=== PATIENT | female | born 1950 | race Caucasian/White ===

== ENCOUNTER → 2016-08-07 20:23 | Outpatient (CLI) | payer MEDICARE | END | disposition home or self-care (01) | LOC: D.LABREF 20:23 | DX: I10 Essential (primary) hypertension (principal) ==

== ENCOUNTER → 2017-08-19 17:00 | Outpatient (CLI) | payer MEDICARE | END | disposition home or self-care (01) | LOC: D.MAMMO 11:30 | DX: Z12.31 Encounter for screening mammogram for malignant neoplasm of breast (principal) ==

== ENCOUNTER → 2017-10-15 16:26 | Outpatient (CLI) | payer MEDICARE | END | disposition home or self-care (01) | LOC: D.MAMMO 09:30 | DX: R92.8 Other abnormal and inconclusive findings on diagnostic imaging of breast (principal) ==

== ENCOUNTER 2018-09-16 14:28 | Inpatient (IN) | payer MEDICARE ==
[2018-09-16] MEDS ORDERED: HUMALOG 30100 UNITS/ SC (14:32)
[2018-09-16] MEDS ORDERED: LANTUS INSULIN10 ML SC (14:32)
[2018-09-16] MEDS ORDERED: PRAVASTATIN SOD10 MG PO (14:32)
[2018-09-16] MEDS ORDERED: COZAAR25 MG PO (14:32)
[2018-09-16] MEDS ORDERED: NEURONTIN600 MG PO (14:33)
[2018-09-16] MEDS ORDERED: VITAMIN B-12500 MC1 PO (14:33)
[2018-09-16 15:47] VITALS: BP 167/86
[2018-09-16 16:20] LABS: APPEARANCE CLEAR (CLEAR); BILIRUBIN NEGATIVE (NEGATIVE); COLOR YELLOW (YELLOW); GLUCOSE NEGATIVE (NEGATIVE); KETONE NEGATIVE (NEGATIVE); NITRITE NEGATIVE (NEGATIVE); PROTEIN NEGATIVE (NEGATIVE); UROBILINOGEN NORMAL (NORMAL)
[2018-09-16 16:52] LABS: BASOPHILS 0.4 % (0-2); EOSINOPHILS 4.1 % (0-7); HEMATOCRIT 41.1 % (36.0-48.0); HEMOGLOBIN 13.8 g/dL (12-16); IMMATURE GRANULOCYTES 0.6 % (0-5); LYMPHOCYTES 18.3 % (15-50); MCH 30.5 pg (26.0-34.0); MCHC 33.6 g/dL (31.0-37.0); MCV 90.7 fL (80.0-100.0); MEAN PLATELET VOLUME 10.2 fL (7.4-10.4); MONOCYTES 5.5 % (2-11); NEUTROPHILS 71.1 % (40-80); PLATELET COUNT 210 10x3/uL (130-400); RBC 4.53 10x6/uL (4.00-5.40); RDW 12.9 % (11.5-14.5); WBC 11.2 10x3/uL (4.8-10.8)
[2018-09-16 16:58] LABS: INR 1.03 (0.85-1.17)
[2018-09-16 17:07] LABS: ALBUMIN 3.8 g/dL (3.4-5.0); BILIRUBIN - TOTAL 0.44 mg/dL (0.2-1.3); CALCIUM 8.9 mg/dL (8.5-10.1); CARBON DIOXIDE 30.1 mmol/L (21.0-32.0); POTASSIUM - SERUM 4.1 mmol/L (3.5-5.1); PROTEIN - SERUM 7.9 g/dL (6.4-8.2)
[2018-09-16 18:02] VITALS: BP 157/76
--- NOTE | 2018-09-16 18:47 | MORECARE ---
CASE MANAGEMENT DISCHARGE SUMMARY PATIENT: NADINE BLOUNT UNIT: [id number] ADM DATE: 09/16/18 AGE: 68 : 48 SEX: F ROOM/BED: D.E17 AUTHOR: NIMESH,DOC PHYSICIAN: REFERRING PHYSICIAN: MAU BOJORQUEZ MD DATE OF SERVICE: 09/16/18 Discharge Plan Patient Name: NADINE BLOUNT Facility: [facility]:[place] : 1950 Planned Disposition: Anticipated Discharge Date: 09/18/18 Discharge Date: Expected LOS: 2 Initial Reviewer: [id number] Initial Review Date: 09/16/2018 Generated: 09/16/18 7:46 pm DCP- Discharge Planning Updated by [id number]: Robyn Narayan on 09/16/18 5:[address] Patient Name: NADINE BLOUNT Admission Status: ER Accout number: [id number] Admission Date: 09-16-2018 : 1950 Admission Diagnosis: Attending: MAU BOJORQUEZ Current LOS: 1 Anticipated DC Date: 09-18-2018 Planned Disposition: Primary Insurance: [facility] MEDICARE SOLUTIONS Discharge Planning Comments: CM met with patient and her daughter to complete initial dc planning assessment. CM educated patient on the CM role and verbal consent given by patient to complete assessment. Patient lives at home alone. She has two grandsons that stay there but are no assistance to her according to the daughter. At discharge patient's daughter does not feel she will be able to go home alone. CM discussed options of Acute rehab, skilled rehab, home health and OP PT. Her daughter said it will just depend on how well she does post surgery. CM will continue to follow and will assist as needed with dc plans/needs. Orthopedic Brace Maker: Robyn Narayan RN, [facility] DCPIA - Discharge Planning Initial Assessment Updated by [id number]: Robyn Narayan on 09/16/18 6:43 pm * Is the patient Alert and Oriented? Yes * How many steps to enter\exit or inside your home? 2 small * PCP Dr. Santos * Pharmacy [facility] [address] * Preadmission Environment Home Alone * ADLs Independent * Equipment Cane Glucometer Wheelchair * Other Equipment Wheelchair is from a family member she may can use. * List name and contact numbers for known caregivers / representatives who currently or will assist patient after discharge: Hailee Arita - daughter - [phone] Latrice Hull - sister - [phone] * Verbal permission to speak to the caregivers and representatives has been obtained from the patient. Yes * Community resources currently utilized None * Additional services required to return to the preadmission environment? Yes * Can the patient safely return to the preadmission environment? No * Has this patient been hospitalized within the prior 30 days at any hospital? No Patient Name: NADINE BLOUNT Page 70720 at 1847 All edits/amendments must be made on the electronic document DICTATION DATE: 09/16/181845 MORTICIAN SUPPLIES SALES REPRESENTATIVE: ROGELIO 09/16/181845 RPT#: [id number] DC DATE: STATUS: ADM IN [facility] [address] [place] [address] END OF REPORT
[2018-09-16 21:18] VITALS: BP 119/68
[2018-09-16 23:36] VITALS: BMI 25.1
[2018-09-17 02:04] VITALS: BP 164/67
[2018-09-17 05:27] LABS: BASOPHILS 0.4 % (0-2); EOSINOPHILS 2.9 % (0-7); HEMATOCRIT 38.8 % (36.0-48.0); HEMOGLOBIN 12.8 g/dL (12-16); IMMATURE GRANULOCYTES 0.2 % (0-5); LYMPHOCYTES 26.5 % (15-50); MCV 90.9 fL (80.0-100.0); MEAN PLATELET VOLUME 10.5 fL (7.4-10.4); PLATELET COUNT 215 10x3/uL (130-400); RBC 4.27 10x6/uL (4.00-5.40); RDW 12.9 % (11.5-14.5); WBC 10.2 10x3/uL (4.8-10.8)
[2018-09-17 05:48] LABS: ANION GAP 11.4 mmol/L (8-16); CALCIUM 8.5 mg/dL (8.5-10.1); CARBON DIOXIDE 29.7 mmol/L (21.0-32.0); POTASSIUM - SERUM 4.1 mmol/L (3.5-5.1)
[2018-09-17 05:59] VITALS: BP 136/44
[2018-09-17 08:44] LABS: INR 1.11 (0.85-1.17); PROTIME 13.8 SECONDS (11.6-15.0)
[2018-09-17 09:41] VITALS: BP 166/77
[2018-09-17 22:22] VITALS: BP 151/77
[2018-09-18 05:16] VITALS: BP 174/70
[2018-09-18 05:46] LABS: BASOPHILS 0.1 % (0-2); EOSINOPHILS 0 % (0-7); HEMATOCRIT 33.4 % (36.0-48.0); HEMOGLOBIN 11.3 g/dL (12-16); IMMATURE GRANULOCYTES 0.3 % (0-5); MCH 30.1 pg (26.0-34.0); MCHC 33.8 g/dL (31.0-37.0); MONOCYTES 7.4 % (2-11); NEUTROPHILS 79.2 % (40-80); PLATELET COUNT 174 10x3/uL (130-400); RBC 3.76 10x6/uL (4.00-5.40); RDW 12.7 % (11.5-14.5); WBC 10.4 10x3/uL (4.8-10.8)
[2018-09-18 05:51] LABS: MCV 88.8 fL (80.0-100.0)
[2018-09-18 05:56] LABS: ANION GAP 12.5 mmol/L (8-16); CALCIUM 7.8 mg/dL (8.5-10.1); CARBON DIOXIDE 25.1 mmol/L (21.0-32.0); CREATININE - SERUM 0.9 mg/dL (0.6-1.3); POTASSIUM - SERUM 4.6 mmol/L (3.5-5.1)
[2018-09-18 09:05] VITALS: BP 155/60
[2018-09-18 12:47] VITALS: BP 142/64
[2018-09-18 17:24] VITALS: BP 144/54
[2018-09-18 20:34] VITALS: BP 137/60
[2018-09-19 00:05] VITALS: BP 136/59
[2018-09-19 05:15] VITALS: BP 124/54
[2018-09-19 05:56] LABS: BASOPHILS 0.3 % (0-2); EOSINOPHILS 3.8 % (0-7); HEMATOCRIT 30.6 % (36.0-48.0); HEMOGLOBIN 10.2 g/dL (12-16); IMMATURE GRANULOCYTES 0.2 % (0-5); MCH 30.3 pg (26.0-34.0); MCHC 33.3 g/dL (31.0-37.0); MEAN PLATELET VOLUME 10.4 fL (7.4-10.4); MONOCYTES 8.8 % (2-11); NEUTROPHILS 59.9 % (40-80); PLATELET COUNT 160 10x3/uL (130-400); RBC 3.37 10x6/uL (4.00-5.40); RDW 13.2 % (11.5-14.5); WBC 11.7 10x3/uL (4.8-10.8)
[2018-09-19 06:00] LABS: MCV 90.8 fL (80.0-100.0)
[2018-09-19 06:39] LABS: CALC OSMOLALITY 284 mosm/kg (275-300); CALCIUM 7.7 mg/dL (8.5-10.1); CARBON DIOXIDE 25.6 mmol/L (21.0-32.0); CHLORIDE - SERUM 108 mmol/L (98-107); CREATININE - SERUM 0.8 mg/dL (0.6-1.3); SODIUM 142 mmol/L (136-145); UREA NITROGEN 19 mg/dL (7-18); eGFR NON AFRICAN AMERICAN 75 mL/min (90-120)
[2018-09-19 06:44] LABS: GLUCOSE 99 mg/dL (74-106)
[2018-09-19 08:31] VITALS: BP 129/65
--- NOTE | 2018-09-19 08:56 | MORECARE ---
CASE MANAGEMENT DISCHARGE SUMMARY PATIENT: NADINE BLOUNT UNIT: [id number] ADM DATE: 09/16/18 AGE: 68 : 48 SEX: F ROOM/BED: D.2229 AUTHOR: NIMESH,DOC PHYSICIAN: REFERRING PHYSICIAN: MAU BOJORQUEZ MD DATE OF SERVICE: 09/19/18 Discharge Plan Patient Name: NADINE BLOUNT Facility: [facility]:[place] : 1950 Planned Disposition: Anticipated Discharge Date: 09/18/18 Discharge Date: Expected LOS: 2 Initial Reviewer: [email or web address] Initial Review Date: 09/16/2018 Generated: 09/19/18 9:56 am DCP- Discharge Planning Updated by [email or web address]: Robyn Narayan on 09/16/18 5:[address] Patient Name: NADINE BLOUNT Admission Status: ER Accout number: [id number] Admission Date: 09-16-2018 : 1950 Admission Diagnosis: Attending: MAU BOJORQUEZ Current LOS: 1 Anticipated DC Date: 09-18-2018 Planned Disposition: Primary Insurance: [facility] MEDICARE SOLUTIONS Discharge Planning Comments: CM met with patient and her daughter to complete initial dc planning assessment. CM educated patient on the CM role and verbal consent given by patient to complete assessment. Patient lives at home alone. She has two grandsons that stay there but are no assistance to her according to the daughter. At discharge patient's daughter does not feel she will be able to go home alone. CM discussed options of Acute rehab, skilled rehab, home health and OP PT. Her daughter said it will just depend on how well she does post surgery. CM will continue to follow and will assist as needed with dc plans/needs. Weapons Engineer: Robyn Narayan RN, [facility] DCPIA - Discharge Planning Initial Assessment Updated by [email or web address]: Robyn Narayan on 09/16/18 6:43 pm * Is the patient Alert and Oriented? Yes * How many steps to enter\exit or inside your home? 2 small * PCP Dr. Santos * Pharmacy [facility] [address] * Preadmission Environment Home Alone * ADLs Independent * Equipment Cane Glucometer Wheelchair * Other Equipment Wheelchair is from a family member she may can use. * List name and contact numbers for known caregivers / representatives who currently or will assist patient after discharge: Hailee Arita - daughter - [phone] Latrice Hull - sister - [phone] * Verbal permission to speak to the caregivers and representatives has been obtained from the patient. Yes * Community resources currently utilized None * Additional services required to return to the preadmission environment? Yes * Can the patient safely return to the preadmission environment? No * Has this patient been hospitalized within the prior 30 days at any hospital? No External Providers External Provider: [facility] Next Contact Date: Service Request Date: Service Type: Resolution: Reviewer: Comments: Last DP export: 09/16/18 5:47 pm Patient Name: NADINE BLOUNT Page [id number] at 0856 All edits/amendments must be made on the electronic document DICTATION DATE: 09/19/18855 CARBURETOR EXPERT: ROGELIO 09/19/1856 RPT#: [id number] DC DATE: STATUS: ADM IN [facility] [address] [place] [address] END OF REPORT
--- NOTE | 2018-09-19 09:04 | MORECARE ---
CASE MANAGEMENT DISCHARGE SUMMARY PATIENT: NADINE BLOUNT UNIT: [id number] ADM DATE: 09/16/18 AGE: 68 : 48 SEX: F ROOM/BED: D.2229 AUTHOR: NIMESH,DOC PHYSICIAN: REFERRING PHYSICIAN: MAU BOJORQUEZ MD DATE OF SERVICE: 09/19/18 Discharge Plan Patient Name: NADINE BLOUNT Facility: [facility]:[place] : 1950 Planned Disposition: Anticipated Discharge Date: 09/18/18 Discharge Date: Expected LOS: 2 Initial Reviewer: [id number] Initial Review Date: 09/16/2018 Generated: 09/19/18 10:04 am Comments DCP- Discharge Planning Updated by [email or web address]: Ivory Shah on 09/19/18 7:[address] Met with patient to discuss discharge planning. She states she does not think she can tolerate 3 hours of therapy a day at this time. ELIZABETH for [facility] signed. States she lives by [facility] with her grand son and would like to be close to home. I called [facility] and spoke to quintin Bosch faxed. CM will continue to follow and assist with discharge planning/needs. DCP- Discharge Planning Updated by [email or web address]: Robyn Narayan on 09/16/18 5:[address] Patient Name: NADINE BLOUNT Admission Status: ER Accout number: [id number] Admission Date: 09-16-2018 : 1950 Admission Diagnosis: Attending: MAU BOJORQUEZ Current LOS: 1 Anticipated DC Date: 09-18-2018 Planned Disposition: Primary Insurance: [facility] MEDICARE SOLUTIONS Discharge Planning Comments: CM met with patient and her daughter to complete initial dc planning assessment. CM educated patient on the CM role and verbal consent given by patient to complete assessment. Patient lives at home alone. She has two grandsons that stay there but are no assistance to her according to the daughter. At discharge patient's daughter does not feel she will be able to go home alone. CM discussed options of Acute rehab, skilled rehab, home health and OP PT. Her daughter said it will just depend on how well she does post surgery. CM will continue to follow and will assist as needed with dc plans/needs. Dorr Operator: Robyn Narayan RN, [facility] DCPIA - Discharge Planning Initial Assessment Updated by [email or web address]: Robyn Narayan on 09/16/18 6:43 pm * Is the patient Alert and Oriented? Yes * How many steps to enter\exit or inside your home? 2 small * PCP Dr. Santos * Pharmacy [facility] * Preadmission Environment Home Alone * ADLs Independent * Equipment Cane Glucometer Wheelchair * Other Equipment Wheelchair is from a family member she may can use. * List name and contact numbers for known caregivers / representatives who currently or will assist patient after discharge: Hailee Arita - daughter - [phone] Latrice Hull - sister - [phone] * Verbal permission to speak to the caregivers and representatives has been obtained from the patient. Yes * Community resources currently utilized None * Additional services required to return to the preadmission environment? Yes * Can the patient safely return to the preadmission environment? No * Has this patient been hospitalized within the prior 30 days at any hospital? No Coverage Notice Reviewer: [id number] Stephen Shah Notice Issued Date-Time: 09/19/2018 8:59 Notice Type: Patient Choice Letter Notice Delivered To: Patient Relationship to Patient: Resourcing Consultant Name: Delivery Method: HAND - Hand Delivered Barbara Days: Prior Verbal Notification: Recipient Understood Notice: Yes Recipient Signature: Yes Med Rec Note Co-signed by Attending: Coverage Notice Comment: ELIZABETH 1. [facility] 2. [facility] Last DP export: 09/19/18 7:56 a Patient Name: NADINE BLOUNT Page 96271 at 0904 All edits/amendments must be made on the electronic document DICTATION DATE: 09/19/18902 FINANCIAL AID OFFICER: ROGELIO 09/19/18902 RPT#: [id number] DC DATE: STATUS: ADM IN [facility] [address] [place] [address] END OF REPORT
--- NOTE | 2018-09-19 11:36 | MORECARE ---
CASE MANAGEMENT DISCHARGE SUMMARY PATIENT: NADINE BLOUNT UNIT: [id number] ADM DATE: 09/16/18 AGE: 68 : 48 SEX: F ROOM/BED: D.2229 AUTHOR: NIMESH,DOC PHYSICIAN: REFERRING PHYSICIAN: MAU BOJORQUEZ MD DATE OF SERVICE: 09/19/18 Discharge Plan Patient Name: NADINE BLOUNT Facility: [facility]:[place] : 1950 Planned Disposition: Anticipated Discharge Date: 09/18/18 Discharge Date: Expected LOS: 2 Initial Reviewer: [email or web address] Initial Review Date: 09/16/2018 Generated: 09/19/18 12:36 pm Comments DCP- Discharge Planning Updated by [id number]: Ivory Shah on 09/19/18 7:[address] Met with patient to discuss discharge planning. She states she does not think she can tolerate 3 hours of therapy a day at this time. ELIZABETH for [facility] and [facility] signed. States she lives by [facility] with her grand son and would like to be close to home. I called [facility] and spoke to quintin Bosch faxed. CM will continue to follow and assist with discharge planning/needs. DCP- Discharge Planning Updated by [id number]: Robyn Narayan on 09/16/18 5:[address] Patient Name: NADINE BLOUNT Admission Status: ER Accout number: [id number] Admission Date: 09-16-2018 : 1950 Admission Diagnosis: Attending: MAU BOJORQUEZ Current LOS: 1 Anticipated DC Date: 09-18-2018 Planned Disposition: Primary Insurance: [facility] MEDICARE SOLUTIONS Discharge Planning Comments: CM met with patient and her daughter to complete initial dc planning assessment. CM educated patient on the CM role and verbal consent given by patient to complete assessment. Patient lives at home alone. She has two grandsons that stay there but are no assistance to her according to the daughter. At discharge patient's daughter does not feel she will be able to go home alone. CM discussed options of Acute rehab, skilled rehab, home health and OP PT. Her daughter said it will just depend on how well she does post surgery. CM will continue to follow and will assist as needed with dc plans/needs. Buckle Coverer: Robyn Narayan RN, [facility] DCPIA - Discharge Planning Initial Assessment Updated by [id number]: Robyn Narayan on 09/16/18 6:43 pm * Is the patient Alert and Oriented? Yes * How many steps to enter\exit or inside your home? 2 small * PCP Dr. Santos * Pharmacy [facility] on [facility] * Preadmission Environment Home Alone * ADLs Independent * Equipment Cane Glucometer Wheelchair * Other Equipment Wheelchair is from a family member she may can use. * List name and contact numbers for known caregivers / representatives who currently or will assist patient after discharge: Hailee Arita - daughter - [phone] Latrice Hull - sister - [phone] * Verbal permission to speak to the caregivers and representatives has been obtained from the patient. Yes * Community resources currently utilized None * Additional services required to return to the preadmission environment? Yes * Can the patient safely return to the preadmission environment? No * Has this patient been hospitalized within the prior 30 days at any hospital? No External Providers External Provider: [facility] Next Contact Date: Service Request Date: Service Type: Resolution: Reviewer: Comments: Coverage Notice Reviewer: [id number] - Ivory Shah Notice Issued Date-Time: 09/19/2018 8:59 Notice Type: Patient Choice Letter Notice Delivered To: Patient Relationship to Patient: Oncology Rn Name: Delivery Method: HAND - Hand Delivered Barbara Days: Prior Verbal Notification: Recipient Understood Notice: Yes Recipient Signature: Yes Med Rec Note Co-signed by Attending: Coverage Notice Comment: ELIZABETH 1. [facility] 2. [facility] DP export: 09/19/18 8:04 a Patient Name: NADINE BLOUNT Page 92320 at 1136 All edits/amendments must be made on the electronic document DICTATION DATE: 09/19/181135 TRAVEL COUNSELOR AUTOMOBILE CLUB: ROGELIO 09/19/18 113 RPT#: [id number] DC DATE: STATUS: ADM IN [facility] [address] [place] [address] END OF REPORT
--- NOTE | 2018-09-19 12:11 | MORECARE ---
CASE MANAGEMENT DISCHARGE SUMMARY PATIENT: NADINE BLOUNT UNIT: [id number] ADM DATE: 09/16/18 AGE: 68 : 48 SEX: F ROOM/BED: D.2229 AUTHOR: NIMESH,DOC PHYSICIAN: REFERRING PHYSICIAN: MAU BOJORQUEZ MD DATE OF SERVICE: 09/19/18 Discharge Plan Patient Name: NADINE BLOUNT Facility: [facility]:[place] : 1950 Planned Disposition: Anticipated Discharge Date: 09/18/18 Discharge Date: Expected LOS: 2 Initial Reviewer: [id number] Initial Review Date: 09/16/2018 Generated: 09/19/18 1:11 pm Comments DCP- Discharge Planning Updated by [email or web address]: Ivory Shah on 09/19/18 11:[address] [facility] does not accept patient's insurance, referral sent to [facility] for [facility]. CM will continue to follow and assist with discharge planning/needs. DCP- Discharge Planning Updated by [id number]: Ivory Shah on 09/19/18 7:[address] Met with patient to discuss discharge planning. She states she does not think she can tolerate 3 hours of therapy a day at this time. ELIZABETH for [facility] and [facility] signed. States she lives by [facility] with her grand son and would like to be close to home. I called [facility] and spoke to Danitza, clinical faxed. CM will continue to follow and assist with discharge planning/needs. DCP- Discharge Planning Updated by [id number]: Robyn Narayan on 09/16/18 5:[address] Patient Name: NADINE BLOUNT Admission Status: ER Accout number: [id number] Admission Date: 09-16-2018 : 1950 Admission Diagnosis: Attending: MAU BOJORQUEZ Current LOS: 1 Anticipated DC Date: 09-18-2018 Planned Disposition: Primary Insurance: [facility] MEDICARE SOLUTIONS Discharge Planning Comments: CM met with patient and her daughter to complete initial dc planning assessment. CM educated patient on the CM role and verbal consent given by patient to complete assessment. Patient lives at home alone. She has two grandsons that stay there but are no assistance to her according to the daughter. At discharge patient's daughter does not feel she will be able to go home alone. CM discussed options of Acute rehab, skilled rehab, home health and OP PT. Her daughter said it will just depend on how well she does post surgery. CM will continue to follow and will assist as needed with dc plans/needs. Rn Chronic: Robyn Narayan RN, [facility] DCPIA - Discharge Planning Initial Assessment Updated by [email or web address]: Robyn Narayan on 09/16/18 6:43 pm * Is the patient Alert and Oriented? Yes * How many steps to enter\exit or inside your home? 2 small * PCP Dr. Santos * Pharmacy [facility] on [facility] * Preadmission Environment Home Alone * ADLs Independent * Equipment Cane Glucometer Wheelchair * Other Equipment Wheelchair is from a family member she may can use. * List name and contact numbers for known caregivers / representatives who currently or will assist patient after discharge: Hailee Arita - daughter - [phone] Latrice Hull - sister - [phone] * Verbal permission to speak to the caregivers and representatives has been obtained from the patient. Yes * Community resources currently utilized None * Additional services required to return to the preadmission environment? Yes * Can the patient safely return to the preadmission environment? No * Has this patient been hospitalized within the prior 30 days at any hospital? No Coverage Notice Reviewer: [id number] Stephen Shah Notice Issued Date-Time: 09/19/2018 8:59 Notice Type: Patient Choice Letter Notice Delivered To: Patient Relationship to Patient: Senior Vice President And Chief Information Officer Name: Delivery Method: HAND - Hand Delivered Barbara Days: Prior Verbal Notification: Recipient Understood Notice: Yes Recipient Signature: Yes Med Rec Note Co-signed by Attending: Coverage Notice Comment: ELIZABETH 1. [facility] 2. [facility] Last DP export: 09/19/18 10:36 a Patient Name: NADINE BLOUNT Page 61082 at 1211 All edits/amendments must be made on the electronic document DICTATION DATE: 09/19/18 1211 GANTRY CRANE OPERATOR: ROGELIO 09/19/18 1211 RPT#: [id number] DC DATE: STATUS: ADM IN [facility] [address] [facility] [place] [place] [address] END OF REPORT
[2018-09-19 12:25] LABS: APPEARANCE CLEAR (CLEAR); BACTERIA FEW /hpf (NONE SEEN); BILIRUBIN NEGATIVE (NEGATIVE); COLOR YELLOW (YELLOW); EPITHELIAL CELLS OCC /hpf (0-5); GLUCOSE NEGATIVE (NEGATIVE); KETONE NEGATIVE (NEGATIVE); MUCUS <1+ /lpf (NONE SEEN); NITRITE NEGATIVE (NEGATIVE); PROTEIN NEGATIVE (NEGATIVE); SPECIFIC GRAVITY 1.015 (1.005-1.020); UROBILINOGEN NORMAL (NORMAL); WHITE CELLS - URINE OCC /hpf (0-5)
[2018-09-19 13:02] VITALS: BP 142/62
[2018-09-19 16:44] VITALS: BP 133/63
[2018-09-19 20:01] VITALS: BP 148/60
[2018-09-20 01:25] VITALS: BP 144/63
[2018-09-20 05:38] LABS: BASOPHILS 0.5 % (0-2); EOSINOPHILS 8.4 % (0-7); HEMATOCRIT 30.1 % (36.0-48.0); IMMATURE GRANULOCYTES 0.3 % (0-5); LYMPHOCYTES 28.7 % (15-50); MCH 30.1 pg (26.0-34.0); MCHC 33.2 g/dL (31.0-37.0); MCV 90.7 fL (80.0-100.0); MEAN PLATELET VOLUME 10.1 fL (7.4-10.4); MONOCYTES 8.7 % (2-11); NEUTROPHILS 53.4 % (40-80); PLATELET COUNT 176 10x3/uL (130-400); RBC 3.32 10x6/uL (4.00-5.40); RDW 12.9 % (11.5-14.5)
[2018-09-20 06:03] LABS: CARBON DIOXIDE 26.3 mmol/L (21.0-32.0); CHLORIDE - SERUM 108 mmol/L (98-107); POTASSIUM - SERUM 3.8 mmol/L (3.5-5.1); SODIUM 141 mmol/L (136-145); UREA NITROGEN 19 mg/dL (7-18)
[2018-09-20 06:16] LABS: CALC OSMOLALITY 282 mosm/kg (275-300); CALCIUM 7.6 mg/dL (8.5-10.1); CREATININE - SERUM 0.8 mg/dL (0.6-1.3); GLUCOSE 102 mg/dL (74-106); eGFR NON AFRICAN AMERICAN 75 mL/min (90-120)
[2018-09-20 09:06] VITALS: BP 143/62
[2018-09-20 13:53] VITALS: BP 112/64
[2018-09-20 16:24] VITALS: BP 151/73
[2018-09-20 19:35] VITALS: BP 147/66
[2018-09-21] VITALS: BP 160/65
[2018-09-21 04:00] VITALS: BP 139/65
[2018-09-21 04:46] LABS: BASOPHILS 0.3 % (0-2); EOSINOPHILS 9.4 % (0-7); HEMATOCRIT 31.2 % (36.0-48.0); HEMOGLOBIN 10.6 g/dL (12-16); IMMATURE GRANULOCYTES 0.2 % (0-5); LYMPHOCYTES 26.5 % (15-50); MCH 30.2 pg (26.0-34.0); MCV 88.9 fL (80.0-100.0); MEAN PLATELET VOLUME 9.6 fL (7.4-10.4); MONOCYTES 8.6 % (2-11); PLATELET COUNT 185 10x3/uL (130-400); RBC 3.51 10x6/uL (4.00-5.40); RDW 12.9 % (11.5-14.5); WBC 10.3 10x3/uL (4.8-10.8)
[2018-09-21 05:00] LABS: CALC OSMOLALITY 281 mosm/kg (275-300); CALCIUM 7.7 mg/dL (8.5-10.1); CHLORIDE - SERUM 107 mmol/L (98-107); CREATININE - SERUM 0.6 mg/dL (0.6-1.3); POTASSIUM - SERUM 3.9 mmol/L (3.5-5.1); SODIUM 142 mmol/L (136-145); UREA NITROGEN 15 mg/dL (7-18); eGFR NON AFRICAN AMERICAN > 90 mL/min (90-120)
[2018-09-21 05:03] LABS: GLUCOSE 59 mg/dL (74-106)
[2018-09-21 09:08] VITALS: BP 170/75
[2018-09-21 13:36] VITALS: BP 174/73
[2018-09-21 18:14] VITALS: BP 157/70
[2018-09-21 20:00] VITALS: BP 137/69
[2018-09-22] VITALS: BP 140/71
[2018-09-22 04:00] VITALS: BP 141/70
[2018-09-22 06:34] LABS: BASOPHILS 0.5 % (0-2); EOSINOPHILS 9.7 % (0-7); HEMATOCRIT 31.4 % (36.0-48.0); HEMOGLOBIN 10.7 g/dL (12-16); IMMATURE GRANULOCYTES 0.1 % (0-5); LYMPHOCYTES 29.6 % (15-50); MCH 30.5 pg (26.0-34.0); MCHC 34.1 g/dL (31.0-37.0); MCV 89.5 fL (80.0-100.0); MONOCYTES 9.2 % (2-11); NEUTROPHILS 50.9 % (40-80); RBC 3.51 10x6/uL (4.00-5.40); RDW 12.9 % (11.5-14.5); WBC 8.8 10x3/uL (4.8-10.8)
[2018-09-22 06:35] LABS: CARBON DIOXIDE 28.1 mmol/L (21.0-32.0); CHLORIDE - SERUM 105 mmol/L (98-107); POTASSIUM - SERUM 4.1 mmol/L (3.5-5.1); SODIUM 141 mmol/L (136-145); UREA NITROGEN 17 mg/dL (7-18); eGFR NON AFRICAN AMERICAN 75 mL/min (90-120)
[2018-09-22 06:36] LABS: CALC OSMOLALITY 280 mosm/kg (275-300); CREATININE - SERUM 0.8 mg/dL (0.6-1.3); GLUCOSE 61 mg/dL (74-106)
[2018-09-22 06:47] LABS: PLATELET COUNT 226 10x3/uL (130-400)
--- NOTE | 2018-09-22 08:56 | MORECARE ---
CASE MANAGEMENT DISCHARGE SUMMARY PATIENT: NADINE BLOUNT UNIT: [id number] ADM DATE: 09/16/18 AGE: 68 : 48 SEX: F ROOM/BED: D.2229 AUTHOR: NIMESH,DOC PHYSICIAN: REFERRING PHYSICIAN: MAU BOJORQUEZ MD DATE OF SERVICE: 09/22/18 Discharge Plan Patient Name: NADINE BLOUNT Facility: [facility]:[place] : 1950 Planned Disposition: Anticipated Discharge Date: 09/18/18 Discharge Date: Expected LOS: 2 Initial Reviewer: [id number] Initial Review Date: 09/16/2018 Generated: 09/22/18 9:56 am Comments DCP- Discharge Planning Updated by [email or web address]: Ivory Hajiag on 09/19/18 11:[address] [facility] does not accept patient's insurance, referral sent to [facility] for [facility]. CM will continue to follow and assist with discharge planning/needs. DCP- Discharge Planning Updated by [email or web address]: Ivory Shah on 09/19/18 7:[address] Met with patient to discuss discharge planning. She states she does not think she can tolerate 3 hours of therapy a day at this time. ELIZABETH for [facility] and [facility] signed. States she lives by [facility] with her grand son and would like to be close to home. I called [facility] and spoke to Danitza, clinical faxed. CM will continue to follow and assist with discharge planning/needs. DCP- Discharge Planning Updated by [email or web address]: Robyn Narayan on 09/16/18 5:[address] Patient Name: NADINE BLOUNT Admission Status: ER Accout number: [id number] Admission Date: 09-16-2018 : 1950 Admission Diagnosis: Attending: MAU BOJORQUEZ Current LOS: 1 Anticipated DC Date: 09-18-2018 Planned Disposition: Primary Insurance: [facility] MEDICARE SOLUTIONS Discharge Planning Comments: CM met with patient and her daughter to complete initial dc planning assessment. CM educated patient on the CM role and verbal consent given by patient to complete assessment. Patient lives at home alone. She has two grandsons that stay there but are no assistance to her according to the daughter. At discharge patient's daughter does not feel she will be able to go home alone. CM discussed options of Acute rehab, skilled rehab, home health and OP PT. Her daughter said it will just depend on how well she does post surgery. CM will continue to follow and will assist as needed with dc plans/needs. Firestopper Technician: Robyn Narayan RN, [facility] DCPIA - Discharge Planning Initial Assessment Updated by [email or web address]: Robyn Narayan on 09/16/18 6:43 pm * Is the patient Alert and Oriented? Yes * How many steps to enter\exit or inside your home? 2 small * PCP Dr. Santos * Pharmacy [facility] on [facility]/[place] * Preadmission Environment Home Alone * ADLs Independent * Equipment Cane Glucometer Wheelchair * Other Equipment Wheelchair is from a family member she may can use. * List name and contact numbers for known caregivers / representatives who currently or will assist patient after discharge: Hailee Arita - daughter - [phone] Latrice Hull - sister - [phone] * Verbal permission to speak to the caregivers and representatives has been obtained from the patient. Yes * Community resources currently utilized None * Additional services required to return to the preadmission environment? Yes * Can the patient safely return to the preadmission environment? No * Has this patient been hospitalized within the prior 30 days at any hospital? No External Providers External Provider: [facility] Next Contact Date: Service Request Date: Service Type: Resolution: Reviewer: Comments: Coverage Notice Reviewer: [id number] - Ivory Shah Notice Issued Date-Time: 09/19/2018 8:59 Notice Type: Patient Choice Letter Notice Delivered To: Patient Relationship to Patient: Program Writer Name: Delivery Method: HAND - Hand Delivered Barbara Days: Prior Verbal Notification: Recipient Understood Notice: Yes Recipient Signature: Yes Med Rec Note Co-signed by Attending: Coverage Notice Comment: ELIZABETH 1Karie Cary 2Loyda George DP export: 09/19/18 11:11 a Patient Name: NADINE BLOUNT Page 41817 at 0856 All edits/amendments must be made on the electronic document DICTATION DATE: 09/22/18855 TEA BLENDER: ROGELIO 09/22/1856 RPT#: [id number] DC DATE: STATUS: ADM IN [facility] [address] [place] [address] END OF REPORT
[2018-09-22 09:01] VITALS: BP 155/66
--- NOTE | 2018-09-22 09:03 | MORECARE ---
CASE MANAGEMENT DISCHARGE SUMMARY PATIENT: NADINE BLOUNT UNIT: [id number] ADM DATE: 09/16/18 AGE: 68 : 48 SEX: F ROOM/BED: D.2229 AUTHOR: NIMESH,DOC PHYSICIAN: REFERRING PHYSICIAN: MAU BOJORQUEZ MD DATE OF SERVICE: 09/22/18 Discharge Plan Patient Name: NADINE BLOUNT Facility: [facility]:[place] : 1950 Planned Disposition: Anticipated Discharge Date: 09/18/18 Discharge Date: Expected LOS: 2 Initial Reviewer: [id number] Initial Review Date: 09/16/2018 Generated: 09/22/18 10:03 am Comments DCP- Discharge Planning Updated by [email or web address]: Ivory Shah on 09/22/18 7:[address] Received a note from patient's daughter that they would like her to go to [facility] inpatient rehab or [facility]. Her insurance has already authorized SNF at [facility]. I spoke with the patient and she would like [facility]. She states she does not think she can tolerate 3 hours of therapy a day. She states she would like to be home in a week, but does not think that will be a possibility. I called and spoke to Brigitte Lomeli at [facility] and clinical faxed. I called the daughter and left a message on her voice mail. CM will continue to follow and assist with discharge planning/needs. DCP- Discharge Planning Updated by [id number]: Ivory Shah on 09/19/18 11:[address] [place] does not accept patient's insurance, referral sent to Roz Chapin for [facility]. CM will continue to follow and assist with discharge planning/needs. DCP- Discharge Planning Updated by [id number]: Ivory Alyssa on 09/19/18 7:[address] Met with patient to discuss discharge planning. She states she does not think she can tolerate 3 hours of therapy a day at this time. ELIZABETH for [place] and [facility] signed. [facility] [place] [facility] grand son and would like to be close to home. I called [facility] and spoke to Danitza clinical faxed. CM will continue to follow and assist with discharge planning/needs. DCP- Discharge Planning Updated by [id number]: Robyn Narayan on 09/16/18 5:[address] Patient Name: NADINE BLOUNT Admission Status: ER Accout number: [id number] Admission Date: 09-16-2018 : 1950 Admission Diagnosis: Attending: MAU BOJORQUEZ Current LOS: 1 Anticipated DC Date: 09-18-2018 Planned Disposition: Primary Insurance: [facility] [employer]IC[employer]UT[employer] Discharge Planning Comments: CM met with patient and her daughter to complete initial dc planning assessment. CM educated patient on the CM role and verbal consent given by patient to complete assessment. Patient lives at home alone. She has two grandsons that stay there but are no assistance to her according to the daughter. At discharge patient's daughter does not feel she will be able to go home alone. CM discussed options of Acute rehab, skilled rehab, home health and OP PT. Her daughter said it will just depend on how well she does post surgery. CM will continue to follow and will assist as needed with dc plans/needs. Mobile Equipment Operator: Robyn Narayan RN, [facility] DCPIA - Discharge Planning Initial Assessment Updated by [id number]: Robyn Narayan on 09/16/18 6:43 pm * Is the patient Alert and Oriented? Yes * How many steps to enter\exit or inside your home? 2 small * PCP Dr. Santos * Pharmacy [facility] on [facility]/[place] * Preadmission Environment Home Alone * ADLs Independent * Equipment Cane Glucometer Wheelchair * Other Equipment Wheelchair is from a family member she may can use. * List name and contact numbers for known caregivers / representatives who currently or will assist patient after discharge: Hailee Arita - daughter - [phone] Latrice Hull - sister - [phone] * Verbal permission to speak to the caregivers and representatives has been obtained from the patient. Yes * Community resources currently utilized None * Additional services required to return to the preadmission environment? Yes * Can the patient safely return to the preadmission environment? No * Has this patient been hospitalized within the prior 30 days at any hospital? No Coverage Notice Reviewer: [id number] Stephen Shah Notice Issued Date-Time: 09/19/2018 8:59 Notice Type: Patient Choice Letter Notice Delivered To: Patient Relationship to Patient: French Folder Name: Delivery Method: HAND - Hand Delivered Barbara Days: Prior Verbal Notification: Recipient Understood Notice: Yes Recipient Signature: Yes Med Rec Note Co-signed by Attending: Coverage Notice Comment: ELIZABETH 1. [facility] 2. [facility] Last DP export: 09/22/18 7:56 a Patient Name: NADINE BLOUNT Page [id number] at 0903 All edits/amendments must be made on the electronic document DICTATION DATE: 09/22/18902 ALUMNI SECRETARY: ROGELIO 09/22/18902 RPT#: [id number] DC DATE: STATUS: ADM IN [facility] [address] [place] [address] END OF REPORT
[2018-09-22 12:57] VITALS: BP 145/64
--- NOTE | 2018-09-22 15:53 | MORECARE ---
CASE MANAGEMENT DISCHARGE SUMMARY PATIENT: NADINE BLOUNT UNIT: [id number] ADM DATE: 09/16/18 AGE: 68 : 48 SEX: F ROOM/BED: D.2229 AUTHOR: NIMESH,DOC PHYSICIAN: REFERRING PHYSICIAN: MAU BOJORQUEZ MD DATE OF SERVICE: 09/22/18 Discharge Plan Patient Name: NADINE BLOUNT Facility: [facility]:[place] : 1950 Planned Disposition: Anticipated Discharge Date: 09/18/18 Discharge Date: Expected LOS: 2 Initial Reviewer: [id number] Initial Review Date: 09/16/2018 Generated: 09/22/18 4:53 pm Comments DCP- Discharge Planning Updated by [id number]: Ivory Alyssa on 09/22/18 2:[address] Called and left a message to follow up on her referral to [facility]. CM will continue to follow and assist with discharge planning/needs. DCP- Discharge Planning Updated by [email or web address]: Ivory Alyssa on 09/22/18 7:[address] Received a note from patient's daughter that they would like her to go to [facility] inpatient rehab or [facility]. Her insurance has already authorized SNF at [facility]. I spoke with the patient and she would like [facility]. She states she does not think she can tolerate 3 hours of therapy a day. She states she would like to be home in a week, but does not think that will be a possibility. I called and spoke to Brigitte Lomeli at [facility] and clinical faxed. I called the daughter and left a message on her voice mail. CM will continue to follow and assist with discharge planning/needs. DCP- Discharge Planning Updated by [email or web address]: Ivory Shah on 09/19/18 11:[address] [place] does not accept patient's insurance, referral sent to Roz Chapin for [facility]. CM will continue to follow and assist with discharge planning/needs. DCP- Discharge Planning Updated by [email or web address]: Ivory Shah on 09/19/18 7:[address] Met with patient to discuss discharge planning. She states she does not think she can tolerate 3 hours of therapy a day at this time. ELIZABETH for [facility] and [facility] signed. States she lives by [facility] with her grand son and would like to be close to home. I called [facility] and spoke to Danitza, clinical faxed. CM will continue to follow and assist with discharge planning/needs. DCP- Discharge Planning Updated by [id number]: Robyn Narayan on 09/16/18 5:[address] Patient Name: NADINE BLOUNT Admission Status: ER Accout number: [id number] Admission Date: 09-16-2018 : 1950 Admission Diagnosis: Attending: MAU BOJORQUEZ Current LOS: 1 Anticipated DC Date: 09-18-2018 Planned Disposition: Primary Insurance: [facility] MEDIC[facility] SOLUTIONS Discharge Planning Comments: CM met with patient and her daughter to complete initial dc planning assessment. CM educated patient on the CM role and verbal consent given by patient to complete assessment. Patient lives at home alone. She has two grandsons that stay there but are no assistance to her according to the daughter. At discharge patient's daughter does not feel she will be able to go home alone. CM discussed options of Acute rehab, skilled rehab, home health and OP PT. Her daughter said it will just depend on how well she does post surgery. CM will continue to follow and will assist as needed with dc plans/needs. Cardiograph Operator: Robyn Narayan RN, [facility] DCPIA - Discharge Planning Initial Assessment Updated by [id number]: Robyn Narayan on 09/16/18 6:43 pm * Is the patient Alert and Oriented? Yes * How many steps to enter\exit or inside your home? 2 small * PCP Dr. Santos * Pharmacy [facility]/[place] * Preadmission Environment Home Alone * ADLs Independent * Equipment Cane Glucometer Wheelchair * Other Equipment Wheelchair is from a family member she may can use. * List name and contact numbers for known caregivers / representatives who currently or will assist patient after discharge: Hailee Arita - daughter - [phone] Latrice Mitchell sister - [phone] * Verbal permission to speak to the caregivers and representatives has been obtained from the patient. Yes * Community resources currently utilized None * Additional services required to return to the preadmission environment? Yes * Can the patient safely return to the preadmission environment? No * Has this patient been hospitalized within the prior 30 days at any hospital? No Coverage Notice Reviewer: [id number] Stephen Shah Notice Issued Date-Time: 09/19/2018 8:59 Notice Type: Patient Choice Letter Notice Delivered To: Patient Relationship to Patient: Corporate Vp Advertising & Online Name: Delivery Method: HAND - Hand Delivered Barbara Days: Prior Verbal Notification: Recipient Understood Notice: Yes Recipient Signature: Yes Med Rec Note Co-signed by Attending: Coverage Notice Comment: ELIZABETH 1. [facility] 2. [facility] DP export: 09/22/18 8:03 a Patient Name: NADINE BLOUNT Page [id number] at 1553 All edits/amendments must be made on the electronic document DICTATION DATE: 09/22/181552 EXHIBIT DESIGNER: ROGELIO 09/22/181552 RPT#: [id number] DC DATE: STATUS: ADM IN [facility] [address] [place] [address] END OF REPORT
[2018-09-22 16:38] VITALS: BP 155/69
[2018-09-22 20:00] VITALS: BP 143/74
[2018-09-23 04:00] VITALS: BP 157/74
[2018-09-23 05:43] LABS: BASOPHILS 0.6 % (0-2); EOSINOPHILS 7.4 % (0-7); HEMATOCRIT 33.3 % (36.0-48.0); HEMOGLOBIN 11.4 g/dL (12-16); IMMATURE GRANULOCYTES 0.2 % (0-5); MCH 30.3 pg (26.0-34.0); MCHC 34.2 g/dL (31.0-37.0); MCV 88.6 fL (80.0-100.0); MEAN PLATELET VOLUME 9.8 fL (7.4-10.4); MONOCYTES 7.7 % (2-11); NEUTROPHILS 59.1 % (40-80); PLATELET COUNT 263 10x3/uL (130-400); RBC 3.76 10x6/uL (4.00-5.40); RDW 12.8 % (11.5-14.5); WBC 9.7 10x3/uL (4.8-10.8)
[2018-09-23 05:59] LABS: ALBUMIN 2.6 g/dL (3.4-5.0); ANION GAP 13.1 mmol/L (8-16); BILIRUBIN - TOTAL 1.7 mg/dL (0.2-1.3); CALCIUM 8.5 mg/dL (8.5-10.1); CARBON DIOXIDE 26.1 mmol/L (21.0-32.0); CREATININE - SERUM 0.9 mg/dL (0.6-1.3); POTASSIUM - SERUM 4.2 mmol/L (3.5-5.1); PROTEIN - SERUM 6.6 g/dL (6.4-8.2)
[2018-09-23] MEDS ORDERED: MIRALAX17 GM PO (09:30)
[2018-09-23] MEDS ORDERED: ASPIRIN81 MG PO ×2 (09:30→11:41)
[2018-09-23] MEDS ORDERED: ACETAMINOPHEN325 MG PO (09:30)
[2018-09-23] MEDS ORDERED: COLACE100 MG PO (09:30)
[2018-09-23 09:34] VITALS: BP 119/74
--- NOTE | 2018-09-23 10:58 | MORECARE ---
CASE MANAGEMENT DISCHARGE SUMMARY PATIENT: NADINE BLOUNT UNIT: [id number] ADM DATE: 09/16/18 AGE: 68 : 48 SEX: F ROOM/BED: D.2229 AUTHOR: NIMESH,DOC PHYSICIAN: REFERRING PHYSICIAN: MAU BOJORQUEZ MD DATE OF SERVICE: 09/23/18 Discharge Plan Patient Name: NADINE BLOUNT Facility: [facility]:[place] : 1950 Planned Disposition: Anticipated Discharge Date: 09/18/18 Discharge Date: Expected LOS: 2 Initial Reviewer: [id number] Initial Review Date: 09/16/2018 Generated: 09/23/18 11:00 am Comments DCP- Discharge Planning Updated by [email or web address]: Ivory Shah on 09/23/18 8:[address] Brigitte at [facility] called and states auth received. Orders received for discharge. Patient informed and daughter called and informed per patient request. Brigitte states she will call back with a mixing picker tender time. Brigitte states it will probably be around 1330 for mixing picker tender. IMM explained and signed. She will discharge to a skilled bed today at [facility]. CM will continue to follow and assist with discharge planning/needs. DCP- Discharge Planning Updated by [email or web address]: Ivory Alyssa on 09/22/18 2:[address] Called and left a message to follow up on her referral to [facility]. CM will continue to follow and assist with discharge planning/needs. DCP- Discharge Planning Updated by [email or web address]: Ivory Shah on 09/22/18 7:[address] Received a note from patient's daughter that they would like her to go to [facility] inpatient rehab or [facility]. Her insurance has already authorized SNF at [facility]. I spoke with the patient and she would like [facility]. She states she does not think she can tolerate 3 hours of therapy a day. She states she would like to be home in a week, but does not think that will be a possibility. I called and spoke to Brigitte Lomeli at [facility] and clinical faxed. I called the daughter and left a message on her voice mail. CM will continue to follow and assist with discharge planning/needs. DCP- Discharge Planning Updated by [id number]: Ivory Shah on 09/19/18 11:[address] [facility] does not accept patient's insurance, referral sent to Roz [facility] for [facility]. CM will continue to follow and assist with discharge planning/needs. DCP- Discharge Planning Updated by [id number]: Ivory Shah on 09/19/18 7:[address] Met with patient to discuss discharge planning. She states she does not think she can tolerate 3 hours of therapy a day at this time. ELIZABETH for [facility] and [facility] signed. States she lives by [facility] with her grand son and would like to be close to home. I called [facility] and spoke to Danitza, clinical faxed. CM will continue to follow and assist with discharge planning/needs. DCP- Discharge Planning Updated by [email or web address]: Robyn Narayan on 09/16/18 5:[address] Patient Name: NADINE BLOUNT Admission Status: ER Accout number: [id number] Admission Date: 09-16-2018 : 1950 Admission Diagnosis: Attending: MAU BOJORQUEZ Current LOS: 1 Anticipated DC Date: 09-18-2018 Planned Disposition: Primary Insurance: [facility] MEDICARE SOLUTIONS Discharge Planning Comments: CM met with patient and her daughter to complete initial dc planning assessment. CM educated patient on the CM role and verbal consent given by patient to complete assessment. Patient lives at home alone. She has two grandsons that stay there but are no assistance to her according to the daughter. At discharge patient's daughter does not feel she will be able to go home alone. CM discussed options of Acute rehab, skilled rehab, home health and OP PT. Her daughter said it will just depend on how well she does post surgery. CM will continue to follow and will assist as needed with dc plans/needs. Qualitative Executive Researcher: Robyn Narayan RN, [facility] DCPIA - Discharge Planning Initial Assessment Updated by [email or web address]: Robyn Narayan on 09/16/18 6:43 pm * Is the patient Alert and Oriented? Yes * How many steps to enter\exit or inside your home? 2 small * PCP Dr. Santos * Pharmacy [facility] on [address] [facility]/[place] * Preadmission Environment Home Alone * ADLs Independent * Equipment Cane Glucometer Wheelchair * Other Equipment Wheelchair is from a family member she may can use. * List name and contact numbers for known caregivers / representatives who currently or will assist patient after discharge: Hailee Arita - daughter - [phone] Latrice Hull - sister - [phone] * Verbal permission to speak to the caregivers and representatives has been obtained from the patient. Yes * Community resources currently utilized None * Additional services required to return to the preadmission environment? Yes * Can the patient safely return to the preadmission environment? No * Has this patient been hospitalized within the prior 30 days at any hospital? No Coverage Notice Reviewer: [id number] Stephen Shah Notice Issued Date-Time: 09/19/2018 8:59 Notice Type: Patient Choice Letter Notice Delivered To: Patient Relationship to Patient: Gunite Mixer Name: Delivery Method: HAND - Hand Delivered Barbara Days: Prior Verbal Notification: Recipient Understood Notice: Yes Recipient Signature: Yes Med Rec Note Co-signed by Attending: Coverage Notice Comment: ELIZABETH 1. [facility] Reviewer: [id number] Stephen Shah Notice Issued Date-Time: 09/23/2018 9:46 Notice Type: IM Discharge Notice Notice Delivered To: Patient Relationship to Patient: Gunite Mixer Name: Delivery Method: HAND - Hand Delivered Barbara Days: Prior Verbal Notification: Recipient Understood Notice: Yes Recipient Signature: Yes Med Rec Note Co-signed by Attending: Coverage Notice Comment: IMM explained, signed, given, copy placed in MR Last DP export: 09/22/18 2:53 p Patient Name: NADINE BLOUNT Page [id number] at 1058 All edits/amendments must be made on the electronic document DICTATION DATE: 09/23/18958 CERTIFIED DIETARY MANAGER: ROGELIO 09/23/18958 RPT#: [id number] DC DATE: STATUS: ADM IN [facility] [address] [place] [address] END OF REPORT
[2018-09-23 13:38] VITALS: BP 163/73
== END 2018-09-23 16:35 | DRG 482 ==
LOC: D.ER 14:28 → D.EDHOLD 18:09 → D.MS 18:50
PROVIDERS: Family Medicine; Orthopaedic Surgery; ADMIT Internal Medicine Nephrology
PROC: 0QS936Z Reposition Left Femoral Shaft with Intramedullary Internal Fixation Device, Percutaneous Approach (ICD-10-PCS; principal; 2018-09-17 09:45)
DX: S72.92XA Unspecified fracture of left femur, initial encounter for closed fracture (principal); W19.XXXA Unspecified fall, initial encounter; I10 Essential (primary) hypertension; E11.9 Type 2 diabetes mellitus without complications; E78.5 Hyperlipidemia, unspecified

== ENCOUNTER 2019-03-31 03:58 | Emergency (ER) | payer MEDICARE, MEDICAID ==
[~2019-03-31] VITALS: Ht 175.3 cm; Wt 84.1 kg
[~2019-03-31 03:58] MED LIST: ACETAMINOPHEN325 MG PO; ASPIRIN81 MG PO; COLACE100 MG PO; COZAAR25 MG PO; HUMALOG 30100 UNITS/ SC; LANTUS INSULIN10 ML SC; MIRALAX17 GM PO; NEURONTIN600 MG PO; PRAVASTATIN SOD10 MG PO; VITAMIN B-12500 MC1 PO
[2019-03-31 04:03] VITALS: Ht 175.3 cm; Wt 84.1 kg
[2019-03-31] MEDS ORDERED: FUROSEMIDE40 MG PO (04:08)
[2019-03-31] MEDS ORDERED: ALENDRONATE SOD10 MG PO (04:09)
[2019-03-31 04:30] LABS: BASOPHILS 0.4 % (0-2); EOSINOPHILS 4.5 % (0-7); HEMOGLOBIN 12.6 g/dL (12-16); IMMATURE GRANULOCYTES 0.2 % (0-5); LYMPHOCYTES 35.5 % (15-50); MCH 30.7 pg (26.0-34.0); MCHC 33.2 g/dL (31.0-37.0); MCV 92.7 fL (80.0-100.0); MONOCYTES 10.3 % (2-11); NEUTROPHILS 49.1 % (40-80); RDW 12.8 % (11.5-14.5); WBC 9.4 10x3/uL (4.8-10.8)
[2019-03-31 04:33] LABS: PLATELET COUNT 192 10x3/uL (130-400)
[2019-03-31 04:38] LABS: CALC OSMOLALITY 280 mosm/kg (275-300); CALCIUM 8.5 mg/dL (8.5-10.1); CARBON DIOXIDE 31.9 mmol/L (21.0-32.0); CHLORIDE - SERUM 101 mmol/L (98-107); POTASSIUM - SERUM 4.1 mmol/L (3.5-5.1); SODIUM 137 mmol/L (136-145); UREA NITROGEN 20 mg/dL (7-18); eGFR NON AFRICAN AMERICAN 58 mL/min (90-120)
[2019-03-31 04:42] LABS: APTT 29.2 SECONDS (22.8-39.4); INR 1.02 (0.85-1.17); PROTIME 12.9 SECONDS (11.6-15.0)
[2019-03-31 04:54] LABS: ALBUMIN 3.6 g/dL (3.4-5.0); ALKALINE PHOSPHATASE 109 U/L (46-116); ALT (SGPT) 41 U/L (10-68); AMYLASE - SERUM 29 U/L (25-115); BILIRUBIN - TOTAL 0.45 mg/dL (0.2-1.3); CKMB 2.4 U/L (0.0-3.6); CREATINE KINASE 244 UL (21-215); LIPASE 102 U/L (73-393); TROPONIN-I < 0.017 ng/mL (0.000-0.060)
[2019-03-31 04:58] LABS: GLUCOSE 172 mg/dL (74-106)
[2019-03-31] MEDS ORDERED: HYDROCODON-ACE1 EA10 PO (05:17)
[2019-03-31 05:44] LABS: APPEARANCE HAZY (CLEAR); BILIRUBIN NEGATIVE (NEGATIVE); COLOR YELLOW (YELLOW); GLUCOSE 500 mg/dL (NEGATIVE); KETONE NEGATIVE (NEGATIVE); NITRITE NEGATIVE (NEGATIVE); PROTEIN 1+ mg/dL (NEGATIVE); SPECIFIC GRAVITY 1.015 (1.005-1.020); UROBILINOGEN NORMAL (NORMAL)
[2019-03-31 05:45] LABS: BACTERIA MODERATE /hpf (NEGATIVE); EPITHELIAL CELLS 0-5 /hpf (0-5); RED CELLS - URINE 0-5 /hpf (0-5)
[2019-03-31] MEDS ORDERED: KEFLEX500 MG PO (05:47)
[2019-03-31] MEDS ORDERED: MACROBID100 MG PO (05:47)
[2019-03-31 05:56] VITALS: BP 147/75
== END 2019-03-31 05:56 | disposition home or self-care (01) ==
LOC: D.ER 03:58
PROVIDERS: Family Medicine
DX: S22.32XA Fracture of one rib, left side, initial encounter for closed fracture (principal); W11.XXXA Fall on and from ladder, initial encounter; N39.0 Urinary tract infection, site not specified; R07.89 Other chest pain; I10 Essential (primary) hypertension; E78.5 Hyperlipidemia, unspecified; E11.9 Type 2 diabetes mellitus without complications

== ENCOUNTER 2019-06-11 09:00 | Outpatient (CLI) | payer MEDICARE, MEDICAID ==
[2019-03-31 04:03] VITALS: BMI 27.3
[~2019-06-11 09:00] MED LIST changes: +ALENDRONATE SOD10 MG PO; +FUROSEMIDE40 MG PO; +HYDROCODON-ACE1 EA10 PO; +KEFLEX500 MG PO; +MACROBID100 MG PO
== END 2019-06-11 10:00 | disposition home or self-care (01) ==
LOC: D.MAMMO 09:00
PROVIDERS: ATTEND Family Medicine
DX: Z12.31 Encounter for screening mammogram for malignant neoplasm of breast (principal)